=== PATIENT | male | born 1980 | race Caucasian/White ===

== ENCOUNTER 2017-01-07 05:11 | Inpatient (IN) | payer MEDICAID ==
[2017-01-07 05:11] VITALS: BMI 26.2
--- NOTE | 2017-01-07 06:10 | C.PDOC ---
History Of Present Illness <Neda Teague - Last Filed: 01/07/17 06:26> <Yumi Smith - Last Filed: 01/07/17 11:31> 35 y/o male patient w/PMHx of shizo/paranoia presents to the emergency department with c/o "hearing voices telling me to kill myself" but does not have a specific plan. Pt admits, was discharged from psych floor weeks ago " dont have my medication". He admits to EtOH and crack use. Ohterwise, pt denies any physical complaints. At the time of evaluation, sleeping comfortably, not in any apparent distress. Poor historian. FYI: ED records review, last visit to ED was on 12/29 due to same complaints when was discharged. (Neda Teague) History Per: Patient <Neda Teague - Last Filed: 01/07/17 06:26> <Yumi Smith - Last Filed: 01/07/17 11:31> Time Seen by Provider: 01/07/17 06:01 Chief Complaint (Nursing): Psychiatric Evaluation Past Medical History Reviewed: Historical Data, Nursing Documentation, Vital Signs - Medical History PMH: Anxiety, Bipolar Disorder, Depression, HTN (Pt denied medical hx during assessment), Hypercholesterolemia, Schizophrenia Denies: Diabetes, Hepatitis, HIV, Seizures, Sexually Transmitted Disease Surgical History: No Surg Hx Family History: States: Unknown Family Hx - Social History Hx Tobacco Use: Yes Hx Alcohol Use: Yes Hx Substance Use: Yes - Immunization History Hx Tetanus Toxoid Vaccination: No Hx Influenza Vaccination: No Hx Pneumococcal Vaccination: No <Neda Teague - Last Filed: 01/07/17 06:26> Vital Signs: Last Vital Signs Temp 98 F 01/07/17 08:23 Pulse 98 H 01/07/17 08:23 Resp 16 01/07/17 08:23 BP 136/65 01/07/17 08:23 Pulse Ox 96 01/07/17 08:23 - [facility] Procedures GROUP PSYCHOTHERAPY (12/19/15) MEDICATION MANAGEMENT (12/19/15) PSYCHIA INTERV/EVAL NEC (11/04/13) Review Of Systems Except As Marked, All Systems Reviewed And Found Negative. Constitutional: Negative for: Fever, Chills Eyes: Negative for: Vision Change ENT: Negative for: Throat Pain Cardiovascular: Negative for: Chest Pain, Palpitations Respiratory: Negative for: Cough, Shortness of Breath, Wheezing Gastrointestinal: Negative for: Nausea, Vomiting, Abdominal Pain Genitourinary: Negative for: Dysuria, Frequency Skin: Negative for: Rash Neurological: Negative for: Weakness, Numbness, Altered Mental Status Psych: Positive for: Suicidal ideation <Neda Teague - Last Filed: 01/07/17 06:26> Physical Exam - Physical Exam Appears: Well, Non-toxic Skin: Normal Color, Warm, Dry, No Rash Head: Atraumatic, Normacephalic Eye(s): bilateral: PERRL Nose: No Flaring Oral Mucosa: Moist Tongue: Normal Appearing Throat: No Erythema, No Exudate, No Drooling Neck: Trachea Midline, Supple Cardiovascular: Rhythm Regular Respiratory: No Decreased Breath Sounds, No Accessory Muscle Use Gastrointestinal/Abdominal: Soft, No Tenderness, No Distention, No Guarding Extremity: Normal ROM, No Pedal Edema, No Deformity Neurological/Psych: Oriented x3, Normal Speech <Neda Teague - Last Filed: 01/07/17 06:26> ED Course And Treatment O2 Sat by Pulse Oximetry: 97 Pulse Ox Interpretation: Normal Progress Note: Case discussed with BRADFORD Fletcher. medical clearence and crisis evaluation- pending <Neda Teague - Last Filed: 01/07/17 06:26> - Laboratory Results Result Diagrams: 01/07/17 06:33 01/07/17 06:33 <Yumi mSith - Last Filed: 01/07/17 11:31> Medical Decision Making <Neda Teague - Last Filed: 01/07/17 06:26> <Yumi Smith - Last Filed: 01/07/17 11:31> Medical Decision Making: Patient was endorsed to me at 7:00, pending crisis evaluation. Upon evaluation, patient is resting comfortably, no acute distress. Denies any physical complaints at this time. Notes he is compliant with his hypertension medications. Patient was evaluated by grocery worker, who discussed case with Dr. Davis. Dr. Davis agrees upon admission. (Yumi Smith) Disposition - Disposition Disposition Time: 06:31 <Neda Teague - Last Filed: 01/07/17 06:26> <Yumi Smith - Last Filed: 01/07/17 11:31> - Disposition Condition: STABLE - Clinical Impression Clinical Impression: Schizophrenia Physician Patient Turnover Patient Signed Over To: Yumi Smith <Neda Teague - Last Filed: 01/07/17 06:26>
[2017-01-07 06:39] LABS: BASO # 0.1 K/uL (0.0-0.2); BASO % 0.5 % (0.0-2.0); EOS # 0.4 K/uL (0.0-0.7); EOS % 3.1 % (0.0-4.0); HEMATOCRIT 45.7 % (35.0-51.0); MEAN CELL VOLUME 83.3 fL (80.0-94.0); MEAN CORPUSCULAR HEMOGLOBIN 28.5 pg (27.0-31.0); MEAN CORPUSCULAR HGB CONC 34.3 g/dL (33.0-37.0); MEAN PLATELET VOLUME 8.8 fL (7.2-11.7); MONO # 0.8 K/uL (0.0-0.8); MONO % 6.2 % (0.0-10.0); RED CELL DISTRIBUTION WIDTH 13.5 % (11.5-14.5)
[2017-01-07 06:49] LABS: CHLORIDE 101 mmol/L (98-107); POTASSIUM 3.9 mmol/L (3.6-5.2); SODIUM 138 mmol/L (132-148)
[2017-01-07 06:51] LABS: GFR AFRICAN-AMERICAN > 60
[2017-01-07 06:52] LABS: ALB/GLOB RATIO 1.2 (1.0-2.1); ALKALINE PHOSPHATASE 67 U/L (38-126); ALT/SGPT 80 U/L (21-72); AST/SGOT 46 U/L (17-59); BILIRUBIN,TOTAL 2.1 mg/dL (0.2-1.3); BLOOD UREA NITROGEN 12 mg/dL (9-20); CALCIUM 9.2 mg/dl (8.6-10.4); CARBON DIOXIDE 21 mmol/L (22-30); GLUCOSE,RANDOM 87 mg/dL (75-110); TOTAL PROTEIN 8.7 g/dL (6.3-8.3)
[2017-01-07 06:53] LABS: ALCOHOL SERUM 58 mg/dl (0-10)
[2017-01-07 08:51] LABS: RBC URINE 1 /hpf (0-3); URINE BILIRUBIN NEGATIVE (NEGATIVE); URINE BLOOD NEGATIVE (NEGATIVE); URINE COLOR Yellow (YELLOW); URINE GLUCOSE (UA) NORMAL (Normal); URINE KETONE 1+ mg/dL (NEGATIVE); URINE LEUKOCYTE ESTERASE NEG Leu/uL (Negative); URINE PROTEIN 1+ mg/dL (NEGATIVE); URINE UROBILINOGEN NORMAL mg/dL (0.2-1.0); WBC URINE 2 /hpf (0-5)
--- NOTE | 2017-01-07 20:18 | PCM.PSYCH ---
Initial Psychiatric Evaluation - Initial Psychiatric Evaluation Type of Admission: Voluntary Legal Status: Capacity Chief Complaint (in patient's own words): I'm hearing voices History of Present Illness and Precipitating Events: Patient is a 36-year-old single, male presenting to the ED for command auditory hallucinations telling him to end his life. Patient reports the voices are telling him to hurt himself and others but denies a specific plan. Patient has since tried treating the voices by self-medicating with pint of Vodka and 1 marijuana joint daily. Pt is a poor historian. Chart reviewed and important content noted. During evaluation he appeared stated. He reported that he had depressed mood and AH. He reported that he was d/c from [facility] 2 weeks ago, after being hospitalized for 7 months for Schizophrenia. During his hospitalization he escaped from [facility] and presented here at [facility]. [facility] transferred patient back to [facility] where he was admitted to their locked unit. In November 2016 he was discharged from [facility] to [facility] for outstanding warrants and was released 2016. [facility] in [facility] he was in the mental health unit. He was admitted to [facility] last year. While in penitentiary the [facility] ([facility] became involved and scheduled him an outpatient appointment at [facility] on 01/06/2017. Patient was given a medication script but is unable to recall the medication and milligrams but thinks it was Haldol and Depakote. Patient has a history of cutting and burning himself. In 2015 he overdosed on his psychiatric medications and ended up in a coma. Patient is denying suicidal/homicidal ideation and visual hallucinations. Per clinician notes and per chart review patient has an extensive psych history at [facility] and multiple psych admissions. Patients most recent PESS visit was May 2016. Patient was [facility] from [facility] on 01/05/2017 with a [facility] referral to help provide medication. [facility] arranged an outpatient appointment for patient for 01/06/2017 which he attended. At the appointment patient was given two weeks worth of medication (unspecified) and a voucher to cover the cost. During this outpatient visit a screening assessment was completed. Patient presented with fair insight and judgment. Current Medications: Active Medications Generic Name Dose Route Start Last Admin Trade Name Freq PRN Reason Stop Dose Admin Benztropine Mesylate 2 mg 01/07/17 10:29 Cogentin PO Q6 PRN Extra Pyramidal Symptoms Haloperidol Lactate 5 mg 01/07/17 10:29 Haldol IM Q8 PRN Moderate Agitation Hydroxyzine HCl 25 mg 01/07/17 10:29 Atarax PO Q6 PRN Anxiety Ibuprofen 400 mg 01/07/17 10:29 Motrin Tab PO Q6 PRN Pain, moderate (4-7) Lorazepam 2 mg 01/07/17 10:29 Ativan PO Q6 PRN Agitation Lorazepam 2 mg 01/07/17 20:15 Ativan PO 01/11/17 20:14 Q4 GREGG Taper Risperidone 1 mg 01/07/17 18:00 01/07/17 17:33 Risperdal Tab PO 1 mg BID GREGG Administration Past Psychiatric History - Past Psychiatric History Previous Treatment History: Inpatient Prior Psychiatric Treatment: multiple psychiatric admission At [facility]: [facility], [facility], [facility], [facility] in [facility] Nature of Treatment: meds Haldol, cogentin Explanation of prior treatment: not compliant with treatment History of Abuse: denied History of ETOH/Drug Use: He reproted that he smokes 1 joint cannabis daily and 1/2 pint vodka daily History of Family Illness: denied Pertinent Medical Hx (Current Medical&Sleep Prob, Allergies): Allergies Allergy/AdvReac Type Severity Reaction Status Date / Time No Known Allergies Allergy Verified 12/29/15 22:47 Haldol 12/29/15 Zoloft 12/29/15 HTN hIGH CHOLESTEROL Review of Systems - Review of Systems Systems not reviewed;Unavailable: Acuity of Condition All systems: reviewed and no additional remarkable complaints except ( PSYCHIATRIC SYMPTOMS) Mental Status Examination - Personal Presentation Personal Presentation: Looks stated age, Dressed appropriate to season Additional comments: Malodorous, disheveled - Affect Affect: Constricted, Depressed - Motor Activity Motor Activity: Psychomotor Retardation - Reliability in Providing Information Reliability in Providing Information: Other (poor) - Speech Speech: Disorganized, Incoherent - Mood Mood: Depressed - Formal Thought Process Formal Thought Process: Hallucinations - Hallucinations/Delusions Hallucinations: Auditory - Obsessions/Compulsions Obsessions: No Compulsions: No - Cognitive Functions Orientation: Person, Place Sensorium: Drowsy Abstract Thinking: [place] Judgement: Intact, as evidence by: Good judgement, Intact, as evidence by: Insight regarding need for hospitalization Memory: Recent intact, as evidence by: Ability to recall events of the day - Risk Risk: Diminished functioning - Strength & Assets Inventory Strength & Assets Inventory: Family support, Cooperative - Limitations Limitations: Other (chronic mental illness) DSM 5 DX - DSM 5 DSM 5 Diagnosis: Schizoaffective disorder Cannabis use disorder Alcohol use disorder - Recommended/Plan of Treatment Treatment Recommendations and Plan of Treatment: Ativan taper Risperdal for psychosis Attend groups and activities Individual therapy Patient educated about risks, benefits, side effects & alternatives of meds. Pt verbalized understanding & agreed with the above. Therapy in milieu. Projected ELOS: 5-7 days Prognosis: fair with meds Discharge Plan and Discharge Criteria: completion of etoh detox treatment and improvement in his psychosis - Smoking Cessation Smoking Cessation Initiated: No
--- NOTE | 2017-01-08 18:41 | PCM.PYCHPN ---
Psychiatric Progress Note - Psychiatric Progress Note Patient seen today, length of contact: 15 minutes Patient Chief Complaint: I'm doing fine Problems Identified/Issues Discussed: Pt was seen and evaluated. Chart reviewed and nurse input received. Pt is compliant with meds. He denied s/e effects. He reproted that he is feeling better, but still appeared internally preoccupied and responding to stimuli. He needs to stabilized on meds He denied etoh withdrawal sx. Medical Problems: not compliant with treatment DSM 5 Symptoms Update: Schizoaffective d/o depressive type cannabis use d/o Alcohol use d/o Medication Change: Yes (increase Risperal 2 mg po BID) Medical Record Reviewed: Yes Mental Status Examination - Cognitive Function Orientation: Person, Place Memory: Intact Attention: Poor Concentration: WNL Association: Loose Fund of Knowledge: WNL Decription of patient's judgement and insights: limited/limited - Mood Mood: Depressed - Affect Affect: Blunted, Depressed - Speech Speech: Appropriate - Formal Thought Process Formal Thought Process: Hallucinations (auditory, command type) - Suicidal Ideation Suicidal Ideation: No - Homicidal Ideation Homicidal Ideation: No Goal/Treatment Plan - Goal/Treatment Plan Need for Continued Stay: Remain at risks for inpatient hospitalization, Discharge may exacerbated symptoms Progress Toward Problem(s) and Goals/Treatment Plan: Ativan taper Increase Risperdal 2 mg po BID for psychosis Attend groups and activities Individual therapy Patient educated about risks, benefits, side effects & alternatives of meds. Pt verbalized understanding & agreed with the above. Therapy in milieu. Estimated Date of D/C: 01/13/17
[2017-01-09 09:11] VITALS: O2SAT 99
--- NOTE | 2017-01-09 11:00 | PCM.BM ---
Treatment Plan Problems - Problems identified on initial assessmt Alcohol Abuse Date Initiated: 01/09/17 Time Initiated: 10:59 Assessment reference: NA Status: Active Treatment assets and liabiliti Patient Assests: ADL independent Patient Liabilities: financial problems, poor support system, substance abuse, legal issue - Milieu Protocol Maintain good personal hygiene: daily Encourage regular showers, daily Remind patient to perform daily oral care Maintain personal safety: daily Educate patient to report safety concerns to staff, daily Monitor environment for contraband/sharps Medication safety: Monitor for expected outcome, potential side effects: daily, Assess barriers to learning: daily, Assess readiness for medication education: daily Milieu Narrative: Ativan taper Increase Risperdal 2 mg po BID for psychosis Attend groups and activities Individual therapy Patient educated about risks, benefits, side effects & alternatives of meds. Pt verbalized understanding & agreed with the above. Therapy in [facility]. Discharge/Continuing Care - Treatment Team Participation Patient/Family/SO Statement: Ativan taper Increase Risperdal 2 mg po BID for psychosis Attend groups and activities Individual therapy Patient educated about risks, benefits, side effects & alternatives of meds. Pt verbalized understanding & agreed with the above. Therapy in [facility].
--- NOTE | 2017-01-09 17:23 | PCM.PYCHPN ---
Psychiatric Progress Note - Psychiatric Progress Note Patient seen today, length of contact: 15 minutes Patient Chief Complaint: I am little better. Problems Identified/Issues Discussed: Patient seen. Chart reviewed. Case discussed with the staff. Issues related to illness and treatment were discussed with the patient. Reported compliant with treatment with no adverse affects. Tolerating treatment very well. Patient reported feeling better with the treatment. Still isolative. Currently patient is on probation/parole. at the time of evaluation, patient was awake alert oriented 3, had no delusions , no auditory or visual hallucinations,no suicidal ideations or homicidal . Medical Problems: None reported Diagnostic Results: Reviewed DSM 5 Symptoms Update: Some improvement with treatment Medication Change: No Medical Record Reviewed: Yes Mental Status Examination - Cognitive Function Orientation: Person, Place Memory: Intact Attention: WNL Concentration: WNL Association: WNL Fund of Knowledge: [facility] Decription of patient's judgement and insights: Fair - Mood Mood: Depressed - Affect Affect: Depressed - Speech Speech: Appropriate - Formal Thought Process Formal Thought Process: Hallucinations (auditory, command type) - Suicidal Ideation Suicidal Ideation: No - Homicidal Ideation Homicidal Ideation: No Goal/Treatment Plan - Goal/Treatment Plan Need for Continued Stay: Remain at risks for inpatient hospitalization, Discharge may exacerbated symptoms, Severe functional impairment Progress Toward Problem(s) and Goals/Treatment Plan: Patient education Supportive therapy Continue treatment as before Patient wants to go to [facility] for follow-up care after discharge from the hospital. Estimated Date of D/C: 01/13/17 - Smoking Cessation Smoking Cessation Initiated: No
[2017-01-10 07:34] VITALS: BP 129/83; PULSE 85; RESP 19; TEMP 97.8
--- NOTE | 2017-01-10 15:03 | PCM.PYCHDC ---
Mental Status Examination - Mental Status Examination Orientation: Person, Place, Situation, Time Memory: Intact Mood: Neutral Affect: Other (appropriate) Speech: Appropriate Attention: WNL Concentration: WNL Association: WNL Fund of Knowledge: WNL Formal Thought Process: No Impairment Description of patient's judgement and insight: Fair Psychotic Thoughts and Behaviors: none Suicidal Ideation: No Current Homicidal Ideation?: No Discharge Summary - Discharge Note Reason for Hospitalization: schizoaffective disorder Alcohol use disorder Cannabis use disorder Psychiatric History (includes Medical, Family, Personal Hx): meds H[facility] Laboratory Data: reviewed Consultations:: List each consultation separately and include: 1. Reason for request. 2. Findings. 3. Follow-up Summary of Hospital Course include:: 1. Description of specific treatment plan utilized for patients during their course of treatmen. 2. Summarize the time- course for resolution of acute symptoms and/or regressed behaviors. 3. Describe issues identified and worked on during hospitalization. 4. Describe medication utilized. 5. Describe medical problems identified and treated. 6. Reassessment of suicide risk Summary of Hospital Course: Patient is a 36-year-old single, male presenting to the ED for command auditory hallucinations telling him to end his life. Patient reports the voices are telling him to hurt himself and others but denies a specific plan. Patient has since tried treating the voices by self-medicating with pint of Vodka and 1 marijuana joint daily. Pt is a poor historian. Chart reviewed and important content noted. During evaluation he appeared stated. He reported that he had depressed mood and AH. He reported that he was d/c from [facility] 2 weeks ago, after being hospitalized for 7 months for Schizophrenia. During his hospitalization he escaped from [facility] and presented here at [facility]. [facility] transferred patient back to [place] where he was admitted to their locked unit. In November 2016 he was discharged from [facility] for [facility] warrants and [facility] 2016. [facility] he [facility] in [facility] health unit. He was admitted to [facility] last year. [facility] in [facility] ([facility] became involved and scheduled him an outpatient appointment at [facility] on 01/06/2017. Patient was given a medication script but is unable to recall the medication and milligrams but thinks it was Haldol and Depakote. Patient has a history of cutting and burning himself. In 2016 he overdosed on his psychiatric medications and ended up in a coma. Patient is denying suicidal/homicidal ideation and visual hallucinations. Per clinician notes and per chart review patient has an extensive psych history at [facility] and multiple psych admissions. Patients most recent PESS visit was May 2016. [facility] from [facility] on 01/[facility]/2017 with a [facility] referral to help provide medication. [facility] arranged an outpatient appointment for patient for 01/06/2017 which he attended. At the appointment patient was given two weeks worth of medication (unspecified) and a voucher to cover the cost. During this outpatient visit a screening assessment was completed. Patient presented with fair insight and judgment. During his stay in the hospital patient was treated with Risperdal, Cogentin, Ativan and other when necessary medications. With the above treatmentpatient started feeling better. Today patient was stable and requesting for discharge. At the time of evaluation and discharge, patient was awake alert oriented 3, had no delusions, no auditory or visual hallucinations, no suicidal ideations or homicidal ideations. Patient was discharged in a stable condition. - Final Diagnosis (DSM 5) Condition upon Discharge: STABLE Disposition: HOME/ ROUTINE Follow-up Treatment Plan: Patient wants to go to [facility] for follow-up care after discharge from the hospital. Prescriptions/Medication Reconciliation: Benztropine [Cogentin] 2 mg PO HS PRN #30 tab PRN Reason: Extra Pyramidal Symptoms risperiDONE [RisperDAL Tab] 2 mg PO BID #60 tab - Smoking Cessation Smoking Cessation Medication prescribed: No - Antipsychotic Medications Pt discharged on 2 or more routine antipsychotic medications: No
== END 2017-01-10 11:02 | disposition home or self-care (01) | DRG 430 ==
LOC: C.ER 05:11 → C.5E 10:52
PROVIDERS: ADMIT Psychiatry & Neurology Psychiatry; ATTEND Psychiatry & Neurology Psychiatry
PROC: GZ3ZZZZ Medication Management (ICD-10-PCS; principal; 2017-01-07)
PROC: GZHZZZZ Group Psychotherapy (ICD-10-PCS; 2017-01-07)
PROC: GZ56ZZZ Individual Psychotherapy, Supportive (ICD-10-PCS; 2017-01-07)
DX: F25.1 Schizoaffective disorder, depressive type (principal); R44.0 Auditory hallucinations; F10.10 Alcohol abuse, uncomplicated; F12.90 Cannabis use, unspecified, uncomplicated; F17.210 Nicotine dependence, cigarettes, uncomplicated; I10 Essential (primary) hypertension; E78.00 Pure hypercholesterolemia, unspecified; Z91.19 Patient's noncompliance with other medical treatment and regimen; Z91.5 Personal history of self-harm

== ENCOUNTER 2017-02-06 19:50 | Emergency (ER) | payer MEDICAID, OTHER ==
[2017-02-06 19:51] VITALS: BMI 26.2
[2017-02-06 20:03] VITALS: BP 152/89; PULSE 97; RESP 16; TEMP 98; O2SAT 99
--- NOTE | 2017-02-06 21:05 | C.PDOC ---
History Of Present Illness 36 year old male presents to the ER with a complaint of pain to the right 5th finger after he fell and landed on his right hand yesterday. Denies LOC, head injury, weakness, or numbness. Time Seen by Provider: 02/06/17 20:15 Chief Complaint (Nursing): Finger,Hand,&Wrist History Per: Patient History/Exam Limitations: no limitations Onset/Duration Of Symptoms: Days Current Symptoms Are (Timing): Still Present Recent travel outside of the [place]: No Past Medical History Reviewed: Historical Data, Nursing Documentation, Vital Signs Vital Signs: Last Vital Signs Temp 98.0 F 02/06/17 20:01 Pulse 97 H 02/06/17 20:01 Resp 16 02/06/17 20:01 BP 152/89 H 02/06/17 20:01 Pulse Ox 99 02/06/17 23:28 - Medical History PMH: Anxiety, Bipolar Disorder, Depression, HTN, Hypercholesterolemia, Schizophrenia Surgical History: Appendectomy ("many years ago") - [facility] Procedures GROUP PSYCHOTHERAPY (01/27/17) INDIVIDUAL PSYCHOTHERAPY, BEHAVIORAL (01/27/17) INDIVIDUAL PSYCHOTHERAPY, SUPPORTIVE (01/07/17) MEDICATION MANAGEMENT (01/07/17) PSYCHIA INTERV/EVAL NEC (11/04/13) Family History: States: Unknown Family Hx - Social History Hx Tobacco Use: Yes Hx Alcohol Use: No Hx Substance Use: No - Immunization History Hx Tetanus Toxoid Vaccination: No Hx Influenza Vaccination: No Hx Pneumococcal Vaccination: No Review Of Systems Musculoskeletal: Positive for: Hand Pain Neurological: Negative for: Weakness, Numbness Physical Exam - Physical Exam Appears: Non-toxic, No Acute Distress Skin: Normal Color, Warm, Dry Head: Atraumatic, Normacephalic Extremity: Tenderness (Minimal to MCP of right 5th digit), Capillary Refill (<2 seconds), No Deformity, Swelling (Minimal to MCP of right 5th digit), Other ( ROM limited due to pain) Pulses: Left Radial: Normal, Right Radial: Normal Neurological/Psych: Oriented x3, Normal Speech, Normal Motor, Normal Sensation ED Course And Treatment O2 Sat by Pulse Oximetry: 99 (Room air) Pulse Ox Interpretation: Normal - Other Rad Right hand x-ray X-Ray: Interpreted by Me, Viewed By Me Interpretation: No acute fractures or dislocations. Progress Note: Right hand x-ray ordered, results were negative. Patient refused pain medication at this time. Patient instructed to take OTC medication for pain as needed and to follow up with PMD for further evaluation. Disposition Counseled Patient/Family Regarding: Diagnosis, Need For Followup - Disposition Referrals: [facility] [Outside] Disposition: HOME/ ROUTINE Disposition Time: 21:01 Condition: STABLE Additional Instructions: Please follow up with PMD Motrin or advil for pain Return to ER if worse Instructions: Contusion in Adults (ED) Forms: [employer] (Bulgarian) - Clinical Impression Clinical Impression: Contusion, hand - Scribe Statement The provider has reviewed the documentation as recorded by the Scribe Azael Todd All medical record entries made by the Scribe were at my direction and personally dictated by me. I have reviewed the chart and agree that the record accurately reflects my personal performance of the history, physical exam, medical decision making, and the department course for this patient. I have also personally directed, reviewed, and agree with the discharge instructions and disposition.
--- NOTE | 2017-02-07 08:45 | RAD ---
PROCEDURE: Right Hand Radiographs. HISTORY: Fall s/p pain to right hand, 5th finger COMPARISON: None. FINDINGS: BONES: Normal. No fracture. JOINTS: Normal. No osteoarthritic changes. SOFT TISSUES: Soft tissue swelling over 5th metacarpal. OTHER FINDINGS: None. IMPRESSION: No fracture or dislocation. Soft tissue swelling -dorsum and over 5th metacarpal.
== END 2017-02-06 21:11 | disposition home or self-care (01) ==
LOC: C.ER 19:50
DX: S60.221A Contusion of right hand, initial encounter (principal); W18.30XA Fall on same level, unspecified, initial encounter

== ENCOUNTER 2017-03-01 08:27 | Emergency (ER) | payer MEDICAID ==
[2017-03-01 08:27] VITALS: BMI 26.2
[2017-03-01 08:39] VITALS: TEMP 97.2
--- NOTE | 2017-03-01 08:53 | C.PDOC ---
History Of Present Illness 37 year old male with PMHx of HTN, HLD, and bipolar disorder presents to the ED for evaluation of high blood pressure. Patient reports he was at [facility] last year where he was given medications for his HTN but once he was d/c home they did not given him any medications to use at home. Patient reports last night he felt chest pain, and this morning he noted high blood pressure so he decided to come in for evaluation. Patient denies headache , dizziness, nausea, vomit, abdominal pain, leg swelling, SOB. Time Seen by Provider: 03/01/17 08:41 Chief Complaint (Nursing): Chest Pain History Per: Patient History/Exam Limitations: no limitations Onset/Duration Of Symptoms: Days Current Symptoms Are (Timing): Still Present Quality: "Pain" Modifying Factors: None Exacerbating Factors: None Alleviating Factors: None Recent travel outside of the [place]: No Additional History Per: Patient Past Medical History Reviewed: Historical Data, Nursing Documentation, Vital Signs Vital Signs: Last Vital Signs Temp 97.2 F L 03/01/17 08:35 Pulse 105 H 03/01/17 11:06 Resp 18 03/01/17 11:06 BP 156/96 H 03/01/17 11:06 Pulse Ox 97 03/01/17 11:31 - Medical History PMH: Anxiety, Bipolar Disorder, Depression, HTN, Hypercholesterolemia, Schizophrenia Denies: Diabetes, Hepatitis, HIV, Chronic Kidney Disease, Seizures, Sexually Transmitted Disease Surgical History: Appendectomy ("many years ago") - [facility] Procedures GROUP PSYCHOTHERAPY (01/27/17) INDIVIDUAL PSYCHOTHERAPY, BEHAVIORAL (01/27/17) INDIVIDUAL PSYCHOTHERAPY, SUPPORTIVE (01/07/17) MEDICATION MANAGEMENT (01/07/17) PSYCHIA INTERV/EVAL NEC (11/04/13) Family History: States: Unknown Family Hx - Social History Hx Tobacco Use: Yes Hx Alcohol Use: Yes (sober) Hx Substance Use: Yes (clean for 2 months now) - Immunization History Hx Tetanus Toxoid Vaccination: No Hx Influenza Vaccination: No Hx Pneumococcal Vaccination: No Review Of Systems Constitutional: Negative for: Fever, Chills Eyes: Negative for: Vision Change Cardiovascular: Positive for: Chest Pain Respiratory: Negative for: Cough, Shortness of Breath Gastrointestinal: Negative for: Nausea, Vomiting, Abdominal Pain Musculoskeletal: Negative for: Neck Pain Skin: Negative for: Rash Neurological: Negative for: Weakness, Numbness, Headache, Dizziness Physical Exam - Physical Exam Appears: Non-toxic, No Acute Distress Skin: Normal Color, Warm Head: Atraumatic, Normacephalic Nose: No Discharge, No Epistaxis, No Deformity Oral Mucosa: Moist Teeth: Normal Dentition Neck: Normal ROM, Supple Chest: Symmetrical, No Tenderness Cardiovascular: Rhythm Regular (Tachycardic), No Murmur Respiratory: Normal Breath Sounds, No Rales, No Rhonchi, No Wheezing Gastrointestinal/Abdominal: Soft, No Tenderness, No Distention, No Rebound Extremity: Normal ROM, No Pedal Edema, No Calf Tenderness, No Swelling Neurological/Psych: Oriented x3, Normal Speech, Normal Cognition Gait: Steady ED Course And Treatment - Laboratory Results Result Diagrams: 03/01/17 08:55 03/01/17 08:55 Lab Interpretation: No Acute Changes ECG: Interpreted By Me, Viewed By Me ECG Rhythm: Sinus Tachycardia ECG Interpretation: No Acute Changes Rate From EC O2 Sat by Pulse Oximetry: 97 (On RA) Pulse Ox Interpretation: Normal - Radiology CXR: Interpreted by Me CXR Interpretation: Yes: No Acute Disease Progress Note: patient hypertensive reports he has not been on HTN meds for a log time because he did not follow up with PMD. Patient denies any chest pain or SOB. Patient denies any SI or HI and does not want to speak to crisis. Patient requesting discharge home. Treated with HCTZ 25 mg PO Reassessment Condition: Improved Medical Decision Making Medical Decision Making: Impression : High blood pressure, CP Plan: * EKG * Blood work * CXR * UA Patient denies Chest pain and reports he came to ED because of increase B/P Patient has history of HTN but non-complient with meds Patient presents today requesting B/P medication denies any sob, CP or sob Treated with HCTZ with improvement of B/P Patient advised to follow up with PMD or clinic for further evaluation Disposition Counseled Patient/Family Regarding: Studies Performed, Diagnosis, Need For Followup, Rx Given - Disposition Referrals: Tj Eldridge MD [Staff Provider] - [facility] [Outside] [facility] [Outside] Disposition: HOME/ ROUTINE Disposition Time: 11:30 Condition: IMPROVED Additional Instructions: Follow up with PMD or clinic Return to ED if any increase symptoms Take medications as dirwected Prescriptions: Hydrochlorothiazide [Microzide] 25 mg PO DAILY #20 cap Instructions: Hypertension (ED) Forms: [facility] (Kyrgyz) - POA Present On Arrival: None - Clinical Impression Clinical Impression: Hypertension - 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 - Scribe Statement The provider has reviewed the documentation as recorded by the Scribe Roman Pool All medical record entries made by the Slavaibe were at my direction and personally dictated by me. I have reviewed the chart and agree that the record accurately reflects my personal performance of the history, physical exam, medical decision making, and the department course for this patient. I have also personally directed, reviewed, and agree with the discharge instructions and disposition.
[2017-03-01 09:01] LABS: BASO # 0.1 K/uL (0.0-0.2); BASO % 1.1 % (0.0-2.0); EOS # 0.2 K/uL (0.0-0.7); EOS % 1.9 % (0.0-4.0); HEMATOCRIT 46.7 % (35.0-51.0); LYMPH # 1.8 K/uL (1.0-4.3); LYMPH % 20.8 % (20.0-40.0); MEAN CELL VOLUME 84.9 fL (80.0-94.0); MEAN CORPUSCULAR HEMOGLOBIN 28.6 pg (27.0-31.0); MEAN CORPUSCULAR HGB CONC 33.7 g/dL (33.0-37.0); MEAN PLATELET VOLUME 9.2 fL (7.2-11.7); MONO # 0.5 K/uL (0.0-0.8); MONO % 5.9 % (0.0-10.0); RED CELL DISTRIBUTION WIDTH 14.4 % (11.5-14.5); WHITE BLOOD COUNT 8.7 K/uL (4.8-10.8)
[2017-03-01 09:08] VITALS: RESP 18
[2017-03-01 09:13] LABS: ALB/GLOB RATIO 1.5 (1.0-2.1); ALKALINE PHOSPHATASE 49 U/L (38-126); ALT/SGPT 45 U/L (21-72); AST/SGOT 29 U/L (17-59); BILIRUBIN,TOTAL 1.3 mg/dL (0.2-1.3); BLOOD UREA NITROGEN 14 mg/dL (9-20); CALCIUM 8.8 mg/dl (8.6-10.4); CARBON DIOXIDE 26 mmol/L (22-30); CHLORIDE 108 mmol/L (98-107); GFR AFRICAN-AMERICAN > 60; GLUCOSE,RANDOM 138 mg/dL (75-110); POTASSIUM 3.8 mmol/L (3.6-5.2); SODIUM 142 mmol/L (132-148); TOTAL PROTEIN 6.9 g/dL (6.3-8.3)
[2017-03-01 09:20] LABS: RBC URINE 1 /hpf (0-3); URINE BILIRUBIN NEGATIVE (NEGATIVE); URINE BLOOD NEGATIVE (NEGATIVE); URINE COLOR Yellow (YELLOW); URINE GLUCOSE (UA) NORMAL (Normal); URINE KETONE NEGATIVE (NEGATIVE); URINE LEUKOCYTE ESTERASE NEG Leu/uL (Negative); URINE PROTEIN NEGATIVE (NEGATIVE); URINE UROBILINOGEN NORMAL mg/dL (0.2-1.0); WBC URINE 1 /hpf (0-5)
[2017-03-01 10:08] LABS: ALCOHOL SERUM < 10 mg/dl (0-10)
[2017-03-01 11:07] VITALS: BP 156/96; PULSE 105
--- NOTE | 2017-03-01 11:26 | RAD ---
HISTORY: SOB COMPARISON: Comparison chest dated 10/26/2013 TECHNIQUE: Chest PA and lateral FINDINGS: LUNGS: Mildly low lung volumes with crowded bronchovascular markings and mild bibasilar atelectasis left greater than right. . PLEURA: No significant pleural effusion identified. No pneumothorax apparent. CARDIOVASCULAR: Normal. OSSEOUS STRUCTURES: Minor multilevel degenerative spondylosis of the thoracic spine VISUALIZED UPPER ABDOMEN: Normal. OTHER FINDINGS: None. IMPRESSION: Mildly low lung volumes with crowded bronchovascular markings and mild bibasilar atelectasis left greater than right.
[2017-03-01 11:27] VITALS: O2SAT 97
--- NOTE | 2017-03-02 12:29 | CARD ---
APPROVED REPORT EKG Measurement Heart [id number] <Conclusion> Sinus tachycardia Nonspecific T wave abnormality Abnormal ECG
== END 2017-03-01 11:39 | disposition home or self-care (01) ==
LOC: C.ER 08:27
DX: I10 Essential (primary) hypertension (principal); E78.00 Pure hypercholesterolemia, unspecified; F31.9 Bipolar disorder, unspecified; F17.210 Nicotine dependence, cigarettes, uncomplicated

== ENCOUNTER 2017-10-24 06:26 | Inpatient (IN) | payer MEDICAID ==
[2017-10-24 06:26] VITALS: BMI 26.2
[2017-10-24 07:25] LABS: BASO # 0.1 K/uL (0.0-0.2); BASO % 0.5 % (0.0-2.0); EOS # 0.1 K/uL (0.0-0.7); HEMOGLOBIN 14.3 g/dL (12.0-18.0); LYMPH # 3.5 K/uL (1.0-4.3); LYMPH % 30.8 % (20.0-40.0); MEAN CELL VOLUME 83.7 fL (80.0-94.0); MEAN CORPUSCULAR HEMOGLOBIN 28.4 pg (27.0-31.0); MEAN PLATELET VOLUME 9.4 fL (7.2-11.7); MONO # 1.1 K/uL (0.0-0.8); NEUT # 6.6 K/uL (1.8-7.0); NEUT % 57.7 % (50.0-75.0); RBC 5.04 Mil/uL (4.40-5.90); RED CELL DISTRIBUTION WIDTH 16.1 % (11.5-14.5); WHITE BLOOD COUNT 11.4 K/uL (4.8-10.8)
[2017-10-24 07:37] LABS: BLOOD UREA NITROGEN 17 mg/dL (9-20); CALCIUM 9.6 mg/dl (8.6-10.4); GFR AFRICAN-AMERICAN > 60; GFR NON-AFRICAN AMERICAN > 60
[2017-10-24 08:43] LABS: SQUAMOUS EPITHIAL < 1 /hpf (0-5); URINE BILIRUBIN NEGATIVE (NEGATIVE); URINE BLOOD NEGATIVE (NEGATIVE); URINE CLARITY Clear (Clear); URINE COLOR Yellow (YELLOW); URINE GLUCOSE (UA) NORMAL (Normal); URINE LEUKOCYTE ESTERASE NEG Leu/uL (Negative); URINE PROTEIN NEGATIVE (NEGATIVE); URINE UROBILINOGEN NORMAL mg/dL (0.2-1.0)
[2017-10-24 09:14] LABS: BARBITURATES, UR NEGATIVE (NEGATIVE); BENZODIAZEPINES, UR NEGATIVE (NEGATIVE); PHENCYCLIDINE, UR NEGATIVE (NEGATIVE)
--- NOTE | 2017-10-24 09:16 | C.PDOC ---
History Of Present Illness 37 year old male patient presents to the ER with c/o suicide ideation. Patient admits to alcohol and drug abuse. Last drug use was last night. Patient denies homicidal ideation. Time Seen by Provider: 10/24/17 07:21 Chief Complaint (Nursing): Psychiatric Evaluation History Per: Patient History/Exam Limitations: no limitations Past Medical History Reviewed: Historical Data, Nursing Documentation, Vital Signs Vital Signs: Last Vital Signs Temp 98.9 F 10/24/17 11:27 Pulse 101 H 10/24/17 16:09 Resp 18 10/24/17 11:27 BP 118/73 10/24/17 16:09 Pulse Ox 95 10/24/17 11:27 - Medical History PMH: Anxiety, Bipolar Disorder, Depression, HTN, Hypercholesterolemia, Schizophrenia Surgical History: Appendectomy ("many years ago") - [id number] Procedures GROUP PSYCHOTHERAPY (01/27/17) INDIVIDUAL PSYCHOTHERAPY, BEHAVIORAL (01/27/17) INDIVIDUAL PSYCHOTHERAPY, SUPPORTIVE (01/07/17) MEDICATION MANAGEMENT (01/07/17) PSYCHIA INTERV/EVAL NEC (11/04/13) Family History: States: Unknown Family Hx - Social History Hx Tobacco Use: Yes Hx Alcohol Use: Yes (sober) Hx Substance Use: Yes - Immunization History Hx Tetanus Toxoid Vaccination: No Hx Influenza Vaccination: No Hx Pneumococcal Vaccination: No Review Of Systems Except As Marked, All Systems Reviewed And Found Negative. Psych: Positive for: Suicidal ideation. Negative for: Other (Homicidal ideation ) Physical Exam - Physical Exam Appears: Well, Non-toxic, No Acute Distress Skin: Normal Color, Warm, Dry Head: Atraumatic, Normacephalic Eye(s): bilateral: Normal Inspection Ear(s): Bilateral: Normal Oral Mucosa: Moist Neck: Normal ROM, Supple Chest: Symmetrical, No Deformity Cardiovascular: Rhythm Regular Respiratory: Normal Breath Sounds Gastrointestinal/Abdominal: Soft, No Tenderness Back: No CVA Tenderness Extremity: Normal ROM (x4) Neurological/Psych: Oriented x3, Normal Speech, Normal Motor, Normal Sensation, Normal Reflexes Gait: Steady ED Course And Treatment - Laboratory Results Result Diagrams: 10/24/17 07:03 10/24/17 07:03 O2 Sat by Pulse Oximetry: 96 (RA) Pulse Ox Interpretation: Normal Progress Note: Impression: Suicidal ideation. Plans: -- Drug screen. -- blood work. -- UA. Reassess: Patient is resting comfortably, and is in no acute distress. he is medically cleared. Patient was accepted by to psychiatry floor. Disposition - Disposition Disposition: HOSPITALIZED Disposition Time: 11:06 Condition: STABLE - Clinical Impression Clinical Impression: Schizoaffective disorder, Suicidal ideations - PA / TIRE MOUNTER / Resident Statement / has reviewed & agrees with the documentation as recorded. - Scribe Statement The provider has reviewed the documentation as recorded by the Elder Freeman Do All medical record entries made by the Scribe were at my direction and personally dictated by me. I have reviewed the chart and agree that the record accurately reflects my personal performance of the history, physical exam, medical decision making, and the department course for this patient. I have also personally directed, reviewed, and agree with the discharge instructions and disposition. Decision To Admit - Pt Status Changed To: Hospital Disposition Of: Inpatient - Admit Certification Admit to Inpatient:: After my assessment, the patient will require hospitalization for at least two midnights. This is because of the severity of symptoms shown, intensity of services needed, and/or the medical risk in this patient being treated as an outpatient. - InPatient: Physician Admission Certification: I certify that this patient requires 2 or more midnights of care for the following reason:: pt will need more than 2 days of hospitalization - . Bed Request Type: Psychiatry Admitting Physician: Truman Cormier Patient Diagnosis: Schizoaffective disorder, Suicidal ideations
[2017-10-24 09:19] LABS: OPIATES, UR POSITIVE (NEGATIVE)
--- NOTE | 2017-10-24 12:25 | PCM.BM ---
<Judy Regan - Last Filed: 10/24/17 12:23> Treatment Plan Problems - Problems identified on initial assessmt Suicidal Ideation Date Initiated: 10/24/17 Time Initiated: 12:24 Assessment reference: NA Status: Active Depression Date Initiated: 10/24/17 Time Initiated: 12:25 Assessment reference: NA Status: Active Treatment assets and liabiliti Patient Assests: cooperative, insightful, ADL independent, physically healthy, negotiates basic needs, cognitively intact Patient Liabilities: live alone, financial problems, relationship conflicts, substance abuse, legal issue - Milieu Protocol Maintain good personal hygiene: daily Encourage regular showers, daily Remind patient to perform daily oral care, daily Assist patient to perform ADL's Maintain personal safety: every shift Educate patient to report safety concerns to staff, every shift Monitor environment for contraband/sharps Medication safety: Monitor for expected outcome, potential side effects: every shift, Assess barriers to learning: every shift, Assess readiness for medication education: every shift <Truman Cormier - Last Filed: 10/25/17 11:37> - Diagnosis (1) Schizoaffective disorder Status: Acute Interventions: 10/25/17 11:37 * Assess/adjust medications daily and /or as needed * See patient on an individual basis 7x/week to assess status of hallucinations * Discuss risks, benefits, side effects and alternatives of medications * (2) Opiate addiction Status: Acute Interventions: 10/25/17 11:37 * Assess 7x/week regarding severity of withdrawal * Educate regarding risks, benefits, side effects and alternatives of medications * Use Motivational Interviewing for abstinence * Use CBT for relapse prevention * Medication management for withdrawal symptoms * Encourage medication assisted treatment * <Jasmin Way - Last Filed: 10/25/17 13:35> Family Contact Family involvement: Family/SO is involved Family contact: Patient declines to allow family contact at present - Goals for Treatment Patient goals for treatment: "I need a program." Discharge/Continuing Care - Education Needs Education Needs: Patient Medication, Patient Coping Skills - Discharge Discharge Criteria: Tolerates medication w/o severe side effects, Reduction of target symptoms Discharge to:: Home, With Family - Treatment Team Participation Discussed with Family/SO: No Was Patient/Family/SO present at Treatment Team Meeting: Yes
--- NOTE | 2017-10-24 13:41 | PCM.PSYCH ---
Initial Psychiatric Evaluation - Initial Psychiatric Evaluation Type of Admission: Voluntary Legal Status: Capacity Chief Complaint (in patient's own words): "I had thoughts of killing myself" History of Present Illness and Precipitating Events: Pt was evaluated at bedside, chart was reviewed with the nurse. Pt is a 37 year old male who presented to the ED this morning for S/I and opioid and alcohol abuse. He states that he drank and abused heroin and cocaine last night for the first time in 2 years. Pt reports meeting a friend and drinking "a lot of vodka and beer", snorting 1 bag of cocaine, and sniffing 3 bags of heroin. Pt came to the ED for S/I and said that he had thoughts of harming himself but no plan. He says that he had S/I 1.5 years ago as well but never acted on this. Pt says that his friends are a bad influence on him and that he believes that breaking his 2 year sobriety is the reason for his S/I last night. He currently denies S/I or depressed mood, anxiety, feelings of hopelessness, decreased energy, or A/V/H. He states that he "just needed to get away from everyone for a little while." Pt was diagnosed with bipolar disorder and schizophrenia 10 years ago and has been taking Depakote and Haldol every since. Past psychiatric hx is also positive for anxiety and depression but pt denies any mood changes recently. Pt denies family support since his struggle with alcohol and drug abuse began. He lives at home alone in a room that he rents. Pt has been smoking 1 pack of cigarettes per day since the age of 13 and was using 6 bags of heroin per day since the age of 16. He denies marijuana, PCP, pills. He has been admitted to multiple times but cannot quantify. Pt denies ever attending rehab. PMHx: anxiety, bipolar disorder, depression, schizophrenia, HTN, hypercholesterolemia, asthma PSHx: appendectomy "a long time ago" Medications: Depakote, Haldol, HCTZ Past Psychiatric History - Past Psychiatric History Previous Treatment History: Inpatient Prior Professional Help: [facility]: Pertinent Medical Hx (Current Medical&Sleep Prob, Allergies): Allergies Allergy/AdvReac Type Severity Reaction Status Date / Time No Known Allergies Allergy Verified 10/24/17 06:33 Divalproex [Depakote] 500 mg PO BID 01/28/17 Haloperidol [Haldol] 5 mg PO BID 01/28/17 Hydrochlorothiazide [Microzide] 25 mg PO DAILY #20 cap 03/01/17 Review of Systems - Review of Systems All systems: reviewed and no additional remarkable complaints except - Psychiatric Psychiatric: Abnormal Sleep Pattern, Anxiety, Behavioral Changes, Depression, Difficulty Concentrating, Suicidal Ideation. absent: Anhedonia, Auditory Hallucinations, Hallucinations, Homicidal Ideation, Hopelessness, Paranoia, Visual Hallucinations, Tactile Hallucinations Mental Status Examination - Personal Presentation Personal Presentation: Looks stated age - Affect Affect: Constricted, Depressed - Motor Activity Motor Activity: Calm, Psychomotor Retardation - Reliability in Providing Information Reliability in Providing Information: Good - Speech Speech: Organized - Mood Mood: Depressed - Formal Thought Process Formal Thought Process: No Impairment - Obsessions/Compulsions Obsessions: No Compulsions: No - Cognitive Functions Orientation: Person, Place, Situation, Time Sensorium: Alert Attention/Concentration: Attentive Abstract Thinking: [place] Estimate of Intelligence: Below average Judgement: Imparied, as evidence by: Poor judgement, Imparied, as evidence by: Lack of insight into illness - Risk Risk: Suicidal, Withdrawal, Diminished functioning - Limitations Limitations: Living alone DSM 5 DX - DSM 5 DSM 5 Diagnosis: Schizoaffective disorder bipolar type Alcohol use disorder severe Alcohol withdrawal Opiate use disorder severe Opiate withdrawal uncomplicated Cocaine use disorder severe - Recommended/Plan of Treatment Treatment Recommendations and Plan of Treatment: Schizoaffective disorder bipolar type -CBT -Psychoeducation -Supportive therapy, group therapy -Gabapentin for augmentation -Trazodone for insomnia -Hydroxyzine for anxiety -Haldol 5 mg PO BID Alcohol use disorder severe Alcohol withdrawal -CBT -Psychoeducation -Supportive therapy, individual therapy -Ativan prn -MVI/Thiamine/Folic Acid Opiate use disorder severe Opiate withdrawal uncomplicated -CBT -Psychoeducation -Supportive therapy, individual therapy -Methadone taper -Gabapentin for augmentation Cocaine use disorder severe -CBT -Psychoeducation -Supportive therapy, individual therapy -Use [place] for abstinence
[2017-10-25] MEDS ORDERED: Aluminum Hydroxide/Magnesium Hydroxide Susp (30 mL) PO PRN (00:34)
[2017-10-25] MEDS: Multiple Vitamins Tab PO SCH (10:28)
--- NOTE | 2017-10-25 11:36 | PCM.PYCHPN ---
Psychiatric Progress Note - Psychiatric Progress Note Patient seen today, length of contact: 15 minutes Patient Chief Complaint: "I had thoughts of killing myself" Problems Identified/Issues Discussed: Pt was evaluated at bedside. Chart was reviewed with the nurse. Pt appears disorganized and internally preoccupied. He still appears paranoid and delusional. Pt remains in bed throughout the day with the exception of pacing the hallways in the morning. Pt is alert and oriented and calm. Pt denies A/H, V/H, S/I, H/I, depressed or anxious mood, or withdrawal symptoms. He has no complaints and repeats that it is "good to get away from everyone out there." He is interested in attending outpatient at [facility] upon discharge. Pt needs more time to stabilize on current medications. Medication Change: No Medical Record Reviewed: Yes Mental Status Examination - Cognitive Function Orientation: Person, Place, Situation, Time Memory: Intact Attention: WNL Concentration: Poor Association: Loose Fund of Knowledge: Poor - Mood Mood: Depressed, Anxious - Affect Affect: Constricted, Depressed - Speech Speech: Soft - Formal Thought Process Formal Thought Process: Delusions, Paranoia, Loosening of associations - Suicidal Ideation Suicidal Ideation: No - Homicidal Ideation Homicidal Ideation: No Goal/Treatment Plan - Goal/Treatment Plan Progress Toward Problem(s) and Goals/Treatment Plan: Schizoaffective disorder bipolar type -CBT -Psychoeducation -Supportive therapy, group therapy -Gabapentin for augmentation -Trazodone for insomnia -Hydroxyzine for anxiety -Haldol 5 mg PO BID Alcohol use disorder severe Alcohol withdrawal -CBT -Psychoeducation -Supportive therapy, individual therapy -Ativan prn -MVI/Thiamine/Folic Acid Opiate use disorder severe Opiate withdrawal uncomplicated -CBT -Psychoeducation -Supportive therapy, individual therapy -Methadone taper -Gabapentin for augmentation Cocaine use disorder severe -CBT -Psychoeducation -Supportive therapy, individual therapy -Use [place] for abstinence
[2017-10-25] MEDS ORDERED: Divalproex 250 mg DR Tab PO SCH (11:45)
[2017-10-25] MEDS: Divalproex 500 mg DR Tab PO SCH (17:28)
[2017-10-26] MEDS: Multiple Vitamins Tab PO SCH (10:41)
[2017-10-26] MEDS: Divalproex 250 mg DR Tab PO SCH (10:41)
--- NOTE | 2017-10-26 15:33 | PCM.PYCHPN ---
Psychiatric Progress Note - Psychiatric Progress Note Patient seen today, length of contact: 15 minutes Patient Chief Complaint: "I had thoughts of killing myself" Problems Identified/Issues Discussed: Patient seen and evaluated, chart reviewed and discussed with the nurse. Pt still reports irritability and agitation. Pt appears more organized and less internally preoccupied than before. He remained isolated and withdrawn, and confined to his room. He still appears paranoid and delusional. Patient is compliant with medications and denies any side effects. Symptoms are improving but pt needs more time to stabilize. Support and psychoeducation given. Medication Change: Yes Medical Record Reviewed: Yes Mental Status Examination - Cognitive Function Orientation: Person, Place, Situation, Time Memory: Intact Attention: WNL Concentration: Poor Association: WNL Fund of Knowledge: Poor - Mood Mood: Depressed - Affect Affect: Constricted, Depressed - Formal Thought Process Formal Thought Process: Paranoia, Loosening of associations - Suicidal Ideation Suicidal Ideation: No - Homicidal Ideation Homicidal Ideation: No Goal/Treatment Plan - Goal/Treatment Plan Need for Continued Stay: Severe depression anxiety, Severe functional impairment Progress Toward Problem(s) and Goals/Treatment Plan: Schizoaffective disorder bipolar type -CBT -Psychoeducation -Supportive therapy, group therapy -Gabapentin for augmentation -Depakote 250 mg PO QAM -Depakote 500 mg PO QHS -Haldol 5 mg pO BID -Trazodone for insomnia -Hydroxyzine for anxiety Alcohol use disorder severe Alcohol withdrawal -CBT -Psychoeducation -Supportive therapy, individual therapy -Ativan prn -MVI/Thiamine/Folic Acid Opiate use disorder severe Opiate withdrawal uncomplicated -CBT -Psychoeducation -Supportive therapy, individual therapy -Methadone taper -Gabapentin for augmentation Cocaine use disorder severe -CBT -Psychoeducation -Supportive therapy, individual therapy -Use [place] for abstinence
[2017-10-26] MEDS: Divalproex 500 mg DR Tab PO SCH (18:03)
[2017-10-27] MEDS: Divalproex 250 mg DR Tab PO SCH (09:43)
[2017-10-27] MEDS: Multiple Vitamins Tab PO SCH (09:43)
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
[2017-10-27] MEDS: Divalproex 500 mg DR Tab PO SCH (17:54)
[2017-10-28] MEDS: Divalproex 250 mg DR Tab PO SCH (09:05)
[2017-10-28] MEDS: Multiple Vitamins Tab PO SCH (09:05)
[2017-10-28] MEDS: Divalproex 500 mg DR Tab PO SCH (17:36)
--- NOTE | 2017-10-28 18:58 | PCM.PYCHPN ---
Psychiatric Progress Note - Psychiatric Progress Note Patient seen today, length of contact: 15 minutes Patient Chief Complaint: I'm feeling better. Problems Identified/Issues Discussed: Patient seen, chart reviewed, case discussed with the staff. Issues related to illness and treatment were discussed with the patient and staff. Reported compliant with treatment with no adverse affects. Tolerating treatment very well. Calm and cooperative. Mood reported as good. Affect appropriate. Feeling better with treatment. Aftercare discussed with the patient. Patient was awake, alert and oriented 3. Denied any delusions, auditory or visual hallucinations, suicidal ideations or homicidal ideations at the time of evaluation Medical Problems: Hypertension Hypercholesterolemia Asthma Diagnostic Results: Reviewed DSM 5 Symptoms Update: Improving with treatment. Medication Change: No Medical Record Reviewed: Yes Mental Status Examination - Cognitive Function Orientation: Person, Place, Situation, Time Memory: Intact Attention: WNL Concentration: WNL Association: WNL Fund of Knowledge: [facility] Decription of patient's judgement and insights: Fair - Mood Mood: Depressed (Much less than before) - Affect Affect: Depressed - Speech Speech: Appropriate - Formal Thought Process Formal Thought Process: No Impairment Psychotic Thoughts and Behaviors: None - Suicidal Ideation Suicidal Ideation: No - Homicidal Ideation Homicidal Ideation: No Goal/Treatment Plan - Goal/Treatment Plan Need for Continued Stay: Remain at risks for inpatient hospitalization, Discharge may exacerbated symptoms, Severe functional impairment Progress Toward Problem(s) and Goals/Treatment Plan: Patient education. Supportive therapy. Continue treatment as before. Patient wants to go to [facility] for follow-up care after discharge from the hospital. Estimated Date of D/C: 10/30/17 - Smoking Cessation Smoking Cessation Initiated: No
[2017-10-29 07:18] VITALS: RESP 18; O2SAT 99
[2017-10-29] MEDS: Divalproex 250 mg DR Tab PO SCH (09:18)
[2017-10-29] MEDS: Multiple Vitamins Tab PO SCH (09:18)
--- NOTE | 2017-10-29 16:34 | PCM.PYCHPN ---
Psychiatric Progress Note - Psychiatric Progress Note Patient seen today, length of contact: 15 minutes Patient Chief Complaint: I'm feeling much better. Problems Identified/Issues Discussed: Patient seen, chart reviewed, case discussed with the staff. Issues related to illness and treatment were discussed with the patient and staff. Reported compliant with treatment with no adverse affects. Tolerating treatment very well. Calm and cooperative. Mood reported as good. Affect appropriate. Feeling much better with treatment. Aftercare discussed with the patient. Patient was awake, alert and oriented 3. Denied any delusions, auditory or visual hallucinations, suicidal ideations or homicidal ideations at the time of evaluation Medical Problems: Hypertension Hypercholesterolemia Asthma Diagnostic Results: Reviewed DSM 5 Symptoms Update: Improving with treatment. Medication Change: No Medical Record Reviewed: Yes Mental Status Examination - Cognitive Function Orientation: Person, Place, Situation, Time Memory: Intact Attention: WNL Concentration: WNL Association: WN Fund of Knowledge: [facility] Decription of patient's judgement and insights: Fair - Mood Mood: Neutral - Affect Affect: Other (Appropriate) - Speech Speech: Appropriate - Formal Thought Process Formal Thought Process: No Impairment Psychotic Thoughts and Behaviors: None - Suicidal Ideation Suicidal Ideation: No - Homicidal Ideation Homicidal Ideation: No Goal/Treatment Plan - Goal/Treatment Plan Need for Continued Stay: Remain at risks for inpatient hospitalization, Discharge may exacerbated symptoms, Severe functional impairment Progress Toward Problem(s) and Goals/Treatment Plan: Patient education. Supportive therapy. Continue treatment as before. Patient wants to go to [facility] for follow-up care after discharge from the hospital. Estimated Date of D/C: 10/30/17 - Smoking Cessation Smoking Cessation Initiated: No
[2017-10-29] MEDS: Divalproex 500 mg DR Tab PO SCH (17:20)
[2017-10-30 06:37] VITALS: BP 135/75; PULSE 62; TEMP 97.5
[2017-10-30] MEDS: Divalproex 250 mg DR Tab PO SCH (09:03)
[2017-10-30] MEDS: Multiple Vitamins Tab PO SCH (09:03)
--- NOTE | 2017-10-30 09:58 | PCM.PYCHDC ---
Mental Status Examination - Mental Status Examination Orientation: Person, Place, Situation, Time Memory: Intact Mood: Euphoric Affect: Constricted Speech: Soft Attention: WNL Concentration: WNL Association: WNL Fund of Knowledge: WNL Formal Thought Process: No Impairment Description of patient's judgement and insight: good, fair Psychotic Thoughts and Behaviors: denies any AVH Suicidal Ideation: No Current Homicidal Ideation?: No Discharge Summary - Discharge Note Reason for Hospitalization: Pt was evaluated at bedside, chart was reviewed with the nurse. Pt is a 37 year old male who presented to the ED this morning for S/I and opioid and alcohol abuse. He states that he drank and abused heroin and cocaine last night for the first time in 2 years. Pt reports meeting a friend and drinking "a lot of vodka and beer", snorting 1 bag of cocaine, and sniffing 3 bags of heroin. Pt came to the ED for S/I and said that he had thoughts of harming himself but no plan. He says that he had S/I 1.5 years ago as well but never acted on this. Pt says that his friends are a bad influence on him and that he believes that breaking his 2 year sobriety is the reason for his S/I last night. He currently denies S/I or depressed mood, anxiety, feelings of hopelessness, decreased energy, or A/V/H. He states that he "just needed to get away from everyone for a little while." Pt was diagnosed with bipolar disorder and schizophrenia 10 years ago and has been taking Depakote and Haldol every since. Past psychiatric hx is also positive for anxiety and depression but pt denies any mood changes recently. Pt denies family support since his struggle with alcohol and drug abuse began. He lives at home alone in a room that he rents. Pt has been smoking 1 pack of cigarettes per day since the age of 13 and was using 6 bags of heroin per day since the age of 16. He denies marijuana, PCP, pills. He has been admitted to multiple times but cannot quantify. Pt denies ever attending rehab. Consultations:: List each consultation separately and include: 1. Reason for request. 2. Findings. 3. Follow-up Summary of Hospital Course include:: 1. Description of specific treatment plan utilized for patients during their course of treatmen. 2. Summarize the time- course for resolution of acute symptoms and/or regressed behaviors. 3. Describe issues identified and worked on during hospitalization. 4. Describe medication utilized. 5. Describe medical problems identified and treated. 6. Reassessment of suicide risk Summary of Hospital Course: During the course of his stay, patient (pt) started progressively improving and he no longer remained irritable, depressed, and suicidal. His mood and anxiety symptoms were improved and he started attending groups and meetings and started socializing. Patient denied any feelings of hopelessness, helplessness, and worthlessness, denied any problem with the sleep or appetite, denied suicidal ideation or homicidal ideation. Pt denied any auditory or visual hallucinations. He denied any withdrawal symptoms. Pt was treated with medications along with supportive therapy, milieu therapy and group therapy. Some changes were made in his current medications and patient was discharged on following medications. He tolerated these medications very well and denied any side effects. - Diagnosis (1) Schizoaffective disorder Status: Acute (2) Opiate addiction Status: Acute - Final Diagnosis (DSM 5) Condition upon Discharge: IMPROVED DSM 5: Schizoaffective disorder bipolar type Alcohol use disorder severe Alcohol withdrawal Opiate use disorder severe Opiate withdrawal uncomplicated Cocaine use disorder severe Disposition: HOME/ ROUTINE Follow-up Treatment Plan: Followup: He was discharged to follow-up with IOP program at [facility]. Education: Pt was educated and counseled about the risks and benefits of taking and not taking medications. Pt was educated and counseled about the risks of drinking and abusing drugs. Pt was educated and counseled to go to the ER or call 911 if pt develop suicidal ideation or homicidal ideation, worsening of symptoms or severe side effects of the meds. Prescriptions/Medication Reconciliation: Benztropine [Cogentin] 1 mg PO BID #60 tab Divalproex [Depakote DR] 500 mg PO BID #60 tcp Haloperidol [Haldol] 5 mg PO BID #60 tab traZODone [Desyrel] 50 mg PO HS PRN #30 tab PRN Reason: Insomnia - Smoking Cessation Smoking Cessation Medication prescribed: No
== END 2017-10-30 10:58 | disposition home or self-care (01) | DRG 430 ==
LOC: C.ER 06:26 → C.5E 11:05
PROVIDERS: ADMIT Psychiatry & Neurology Psychiatry; ATTEND Psychiatry & Neurology Psychiatry
PROC: GZHZZZZ Group Psychotherapy (ICD-10-PCS; principal; 2017-10-24)
PROC: GZ56ZZZ Individual Psychotherapy, Supportive (ICD-10-PCS; 2017-10-24)
DX: F25.0 Schizoaffective disorder, bipolar type (principal); F11.23 Opioid dependence with withdrawal; F14.10 Cocaine abuse, uncomplicated; F10.230 Alcohol dependence with withdrawal, uncomplicated; F17.210 Nicotine dependence, cigarettes, uncomplicated; J45.909 Unspecified asthma, uncomplicated; I10 Essential (primary) hypertension; G47.00 Insomnia, unspecified; F41.9 Anxiety disorder, unspecified; E78.00 Pure hypercholesterolemia, unspecified; Z91.81 History of falling; F10.220 Alcohol dependence with intoxication, uncomplicated; Y90.5 Blood alcohol level of 100-119 mg/100 ml

== ENCOUNTER 2017-12-04 10:55 | Emergency (ER) | payer MEDICAID ==
[2017-12-04 10:55] VITALS: BMI 26.2
[2017-12-04 11:13] VITALS: TEMP 98.5; O2SAT 97
[2017-12-04 11:52] VITALS: BP 145/96; PULSE 97; RESP 16
--- NOTE | 2017-12-04 12:20 | C.PDOC ---
History Of Present Illness 37-year-old male, presents to the emergency department with complaints of mid sternal chest pain since this morning. Patient states he was helping his mother carry furniture prior to onset of pain. Pain is described as non-radiating, and rated 6/10. He notes pain has now resolved. Denies shortness of breath, nausea/ vomiting, fever or chills. No other complaints at this time. Time Seen by Provider: 12/04/17 11:19 Chief Complaint (Nursing): Chest Pain History Per: Patient History/Exam Limitations: no limitations Current Symptoms Are (Timing): Still Present Severity: Moderate Past Medical History Reviewed: Historical Data, Nursing Documentation, Vital Signs Vital Signs: Last Vital Signs Temp 98.5 F 12/04/17 11:12 Pulse 97 H 12/04/17 11:36 Resp 16 12/04/17 11:36 BP 145/96 H 12/04/17 11:36 Pulse Ox 97 12/04/17 12:20 - Medical History PMH: Anxiety, Bipolar Disorder, Depression, HTN, Hypercholesterolemia, Schizophrenia Surgical History: Appendectomy ("many years ago") - PAYMEY Procedures GROUP PSYCHOTHERAPY (10/24/17) INDIVIDUAL PSYCHOTHERAPY, BEHAVIORAL (01/27/17) INDIVIDUAL PSYCHOTHERAPY, SUPPORTIVE (10/24/17) MEDICATION MANAGEMENT (01/07/17) PSYCHIA INTERV/EVAL NEC (11/04/13) Family History: States: No Known Family Hx - Social History Hx Tobacco Use: Yes Hx Alcohol Use: No (sober) Hx Substance Use: No - Immunization History Hx Tetanus Toxoid Vaccination: No Hx Influenza Vaccination: No Hx Pneumococcal Vaccination: No Review Of Systems Constitutional: Negative for: Fever, Chills Cardiovascular: Positive for: Chest Pain Respiratory: Negative for: Shortness of Breath Gastrointestinal: Negative for: Nausea, Vomiting, Abdominal Pain Musculoskeletal: Negative for: Neck Pain Physical Exam - Physical Exam Appears: Non-toxic, No Acute Distress Skin: Normal Color, Warm, Dry, No Rash Head: Atraumatic, Normacephalic Eye(s): bilateral: Normal Inspection, PERRL, EOMI Nose: Normal Oral Mucosa: Moist Lips: Normal Appearing Neck: Normal ROM Chest: Symmetrical Cardiovascular: Rhythm Regular, No Murmur Respiratory: Normal Breath Sounds, No Accessory Muscle Use Gastrointestinal/Abdominal: Soft, No Tenderness Back: Normal Inspection Extremity: Normal ROM, No Deformity Neurological/Psych: Oriented x3, Normal Speech ED Course And Treatment O2 Sat by Pulse Oximetry: 97 (RA) Medical Decision Making Medical Decision Making: plan: * EKG * Chest X-Ray * Reassess and Disposition Disposition Counseled Patient/Family Regarding: Studies Performed, Diagnosis, Need For Followup - Disposition Referrals: [facility] [Outside] Disposition: HOME/ ROUTINE Disposition Time: 12:18 Condition: STABLE Additional Instructions: Your symptoms have resolved, but you should follow up with a doctor for further evaluations. Instructions: Chest Pain (DC) Forms: [facility] (Serbian), General Discharge Instructions - POA Present On Arrival: None - Clinical Impression Clinical Impression: Chest pain - Scribe Statement The provider has reviewed the documentation as recorded by the Scribe (Priya Watkins) Provider Attestation: All medical record entries made by the Scribe were at my direction and personally dictated by me. I have reviewed the chart and agree that the record accurately reflects my personal performance of the history, physical exam, medical decision making, and the department course for this patient. I have also personally directed, reviewed, and agree with the discharge instructions and disposition.
== END 2017-12-04 12:44 | disposition home or self-care (01) ==
LOC: C.ER 10:55
DX: R07.9 Chest pain, unspecified (principal); F20.9 Schizophrenia, unspecified; E78.00 Pure hypercholesterolemia, unspecified; I10 Essential (primary) hypertension; Z72.0 Tobacco use